=== PATIENT | female | born 1965 | race Caucasian/White ===

== ENCOUNTER → 2024-03-17 06:27 | Day surgery (SDC) | payer OTHER, SELFPAY | LOC: GI 06:27 | PROVIDERS: ATTENDING PHYSICIAN Internal Medicine | DX: Z12.11 Encounter for screening for malignant neoplasm of colon (principal); Z86.010 Personal history of colon polyps; K57.30 Diverticulosis of large intestine without perforation or abscess without bleeding; K64.9 Unspecified hemorrhoids; K63.89 Other specified diseases of intestine | CPT/HCPCS: G0105 ==

== ENCOUNTER → 2025-04-20 06:37 | Outpatient (REF) | payer OTHER, SELFPAY | LOC: RCS 06:37 | PROVIDERS: ATTENDING PHYSICIAN Internal Medicine Cardiovascular Disease; FAMILY PHYSICIAN Student in an Organized Health Care Education/Training Program | DX: R06.02 Shortness of breath (principal) | CPT/HCPCS: 78452; 93017; A9500; J2785 ==

== ENCOUNTER → 2025-09-11 13:23 | Outpatient (REF) | payer OTHER, SELFPAY | LOC: RAD 13:23 | PROVIDERS: ATTENDING PHYSICIAN Nurse Practitioner; FAMILY PHYSICIAN Student in an Organized Health Care Education/Training Program | DX: S91.302A Unspecified open wound, left foot, initial encounter (principal) | CPT/HCPCS: 93922; 93925 ==